=== PATIENT | male | born 1985 | race Caucasian/White ===

== ENCOUNTER → 2021-07-25 | Outpatient (CLI) | payer OTHER | LOC: M PLAIMG 07:44 | PROVIDERS: ATTEND Physician Assistant Medical | DX: J32.9 Chronic sinusitis, unspecified (principal); G43.909 Migraine, unspecified, not intractable, without status migrainosus ==

== ENCOUNTER 2024-04-23 17:24 | Emergency (ER) | payer OTHER ==
[~2024-04-23] VITALS: Ht 180.3 cm; Wt 101.0 kg
[2024-04-23 17:50] VITALS: TEMP 98
[2024-04-23] MEDS ORDERED: PROP60TA14 PO (19:34)
[2024-04-23] MEDS: LORazepam 2 MG TAB PO STA (20:32)
[2024-04-23 21:10] VITALS: BP 132/94; O2SAT 96
== END 2024-04-23 21:44 | disposition home or self-care (01) ==
LOC: M ED 17:24
DX: F41.9 Anxiety disorder, unspecified (principal); F32.A Depression, unspecified; F17.200 Nicotine dependence, unspecified, uncomplicated; Z79.899 Other long term (current) drug therapy

== ENCOUNTER 2024-09-10 20:41 | Inpatient (IN) | payer OTHER ==
[~2024-09-10] VITALS: Ht 175.3 cm; Wt 104.5 kg
[~2024-09-10 20:41] MED LIST: PROP60TA14 PO
[2024-09-10] MEDS: OLANZapine INTRAMUSCULAR 10MG VIAL IM ONE (21:10)
[2024-09-10 22:12] LABS: PLATELET COUNT, AUTOMATED 235 10^3/uL (150-450)
[2024-09-10 22:13] LABS: ETHYL ALCOHOL (ETHANOL) < 0.003 % (0.000-0.010)
[2024-09-10 22:15] LABS: ALT/SGPT 43 U/L (7.0-40); AST/SGOT 34 U/L (<34); CALCIUM LEVEL 9.3 MG/DL (8.5-10.1); CARBON DIOXIDE LEVEL 25 MMOL/L (20-31); CHLORIDE LEVEL 108 MMOL/L (98-107); CREATININE FOR GFR 0.91 MG/DL (0.70-1.30); GLOMERULAR FILTRATION RATE > 90.0 (>60); POTASSIUM SERUM 4.4 MMOL/L (3.5-5.1); SALICYLATE LEVEL < 3.0 MG/DL (<30); SODIUM LEVEL 144 MMOL/L (136-145)
[2024-09-10 22:50] LABS: AMPHETAMINES LEVEL URINE NEGATIVE (NEGATIVE); BARBITURATES URINE NEGATIVE (NEGATIVE); BENZODIAZEPINES URINE NEGATIVE (NEGATIVE); COCAINE METABOLITE URINE NEGATIVE (NEGATIVE); METHADONE URINE NEGATIVE (NEGATIVE); OPIATES URINE NEGATIVE (NEGATIVE); PHENCYCLIDINE URINE NEGATIVE (NEGATIVE)
[2024-09-10 23:09] LABS: CANNABINOIDS URINE POSITIVE (NEGATIVE)
[2024-09-10 23:10] LABS: HIV 1&2 SCREEN NEGATIVE (NEGATIVE)
[2024-09-10] MEDS ORDERED: HOME MED LIST COMPLETE! XX SCH (23:20)
[2024-09-11] MEDS ORDERED: OLANZapine ORAL DISINTEGRATING TAB 5MG PO PRN (00:45)
[2024-09-11] MEDS ORDERED: traZODone 50 MG TAB PO PRN (00:45)
[2024-09-11] MEDS ORDERED: IBUPROFEN 400 MG TAB PO PRN (00:45)
[2024-09-11] MEDS ORDERED: MOM 30 ML SUSPENSION UDC PO PRN (00:45)
[2024-09-11] MEDS ORDERED: ACETAMINOPHEN 325 MG TAB PO PRN (00:45)
[2024-09-11] MEDS ORDERED: MAALOX 30 ML SUSP *UDC PO PRN (00:45)
[2024-09-11] MEDS: HALOPERIDOL LACTATE 5 MG/ML VIAL IM ONE (01:35)
[2024-09-11] MEDS: diphenhydrAMINE 50 MG/ML VIAL IM ONE (01:35)
[2024-09-11] MEDS: NICOTINE 21MG/24HR 1 EA TRANSDERMAL TD STA (01:38)
[2024-09-12 13:41] LABS: HEPATITIS B SURFACE ANTIBODY POSITIVE (POSITIVE)
[2024-09-12 14:14] LABS: HEPATITIS C VIRUS ABY INDEX 0.10 INDEX (<0.8)
[2024-09-12 14:39] VITALS: BP 149/68; TEMP 98.4; O2SAT 95
== END 2024-09-12 15:03 | disposition home or self-care (01) | DRG 882 ==
LOC: M ED 20:41 → M ED INP 09-11 00:43 → M PSY 09-11 05:57
PROVIDERS: ADMIT Psychiatry & Neurology Neurology; ATTEND Psychiatry & Neurology Neurology
DX: F43.10 Post-traumatic stress disorder, unspecified (principal); F60.9 Personality disorder, unspecified; Z87.820 Personal history of traumatic brain injury